=== PATIENT | female | born 1945 | race Caucasian/White ===

== ENCOUNTER → 2021-01-02 | Emergency (ER) | payer MEDICARE, MEDICAID ==
[~2021-01-02] VITALS: Ht 144.8 cm; Wt 40.0 kg
[~2021-01-02] MED LIST: ERYT1OIN6 EACHEYE; proparacaine 0.5% ophthalmic drops 15ml EACHEYE ONE
[2021-01-02 16:31] VITALS: BP 127/64
== END | disposition home or self-care (01) ==
LOC: ER 16:27
DX: T15.11XA Foreign body in conjunctival sac, right eye, initial encounter (principal); H57.11 Ocular pain, right eye; Z79.2 Long term (current) use of antibiotics; X58.XXXA Exposure to other specified factors, initial encounter; Y93.89 Activity, other specified; Y92.89 Other specified places as the place of occurrence of the external cause; Y99.8 Other external cause status
CPT/HCPCS: 65205; 99284